=== PATIENT | female | born 1995 | race Caucasian/White ===

== ENCOUNTER 2017-04-06 19:49 | Emergency (ER) | payer OTHER ==
[~2017-04-06] VITALS: Ht 175.3 cm; Wt 60.8 kg
[~2017-04-06 19:49] MED LIST: ALBU6.7H INH; LORA10TA7 PO; PROM6.257 PO; ZITH250T PO
[2017-04-06 19:55] VITALS: BP 133/63; PULSE 98; RESP 16; TEMP 98.4; O2SAT 98
[2017-04-06] MEDS ORDERED: POLY10O RIGHT EYE (20:03)
[2017-04-06] MEDS ORDERED: AMOX500T2 PO (20:03)
[2017-04-06] MEDS ORDERED: CLIN300C5 PO (20:58)
[2017-04-06] MEDS ORDERED: CIPR3.5O RIGHT EYE (20:58)
--- NOTE | 2017-04-06 20:58 | PD ---
HPI Chief Complaint: Eye Problems/Injury Time Seen by Provider: 20:42 Travel History International Travel<30 days: No Contact w/Intl Traveler<30days: No Traveled to known affect area: No History of Present Illness HPI 21-year-old female here with bilateral eye redness and right eye lid swelling 3 days. Patient was seen 3 days ago and put on Bleph-10 eyedrops for conjunctivitis. Since that time her symptoms worsen. She denies eye pain or visual changes. She does use contact lenses. No trauma to the eye. Symptoms severity moderate. No alleviating factors. PFSH Past Medical History Medical History: Denies Significant Hx Diminished Hearing: No Musculoskeletal: Yes (FX LEFT ARM) Immunizations Current: Yes (utd) Tetanus Vaccination: < 5 Years Influenza Vaccination: No ?: Not LMP: 04-01-17 Past Surgical History Ear Surgery: Yes (TUBES REMOVED) Other Surgery: Yes (ADENOIDS REMOVED, ) Social History Alcohol Use: Yes (weekends) Tobacco Use: No Substance Use: No Allergies-Medications (Allergen,Severity, Reaction): Coded Allergies: azithromycin (Verified Allergy, Severe, VOMMITS BLOOD, 04/06/17) Reported Meds & Prescriptions Reported Meds & Active Scripts Active Reported Amoxicillin-Clavulanate 500-125 mg Tab 500 Mg PO BID Polytrim Opth Drops (Polymyxin/Trimethoprim Sulfate) 10,000-0.1 Unit/Ml-% Soln 1 Drop RIGHT EYE Q6HR Review of Systems Except as stated in HPI: all other systems reviewed are Neg General / Constitutional: No: Fever Eyes: No: Visual changes Physical Exam Narrative GENERAL: Alert female in no distress. SKIN: Warm and dry. HEAD: Normocephalic. EYES: Bilateral eyes injected right greater than the left. Moderate swelling of the right upper and lower lid. Crusting noted at eyelashes. PERRLA. EOMs intact. No pain with extraocular motions. NECK: Supple, trachea midline. No lymphadenopathy. Data Data Last Documented VS Vital Signs Date Time Temp Pulse Resp B/P (MAP) Pulse Ox O2 Delivery O2 Flow Rate FiO2 04/06/17 19:55 98.4 98 16 133/63 (86) 98 MDM Medical Decision Making Medical Screen Exam Complete: Yes Emergency Medical Condition: Yes Differential Diagnosis Bacterial Conjunctivitis, orbital cellulitis, periorbital cellulitis Narrative Course 21-year-old female here with conjunctivitis right worse than left 3 days. Symptoms not improving with Bleph-10. On exam she has bilateral eye injection with crusting at the base of the lashes on the right side. Moderate swelling of the right upper and lower lid with mild erythema. Ocular eye motions are intact and painless. No proptosis. I do not suspect orbital cellulitis. Patient will be instructed to discontinue the Bleph-10 and start Cipro ophthalmic ointment. She is to follow-up with her primary care physician or anchor operator in one to 2 days for recheck. Return prior symptoms worsen. Diagnosis Primary Impression: Conjunctivitis Qualified Codes: H10.9 - Unspecified conjunctivitis Referrals: Primary Care Physician Scripts Clindamycin (Clindamycin) 300 Mg Cap 300 MG PO TID for Infection for 7 Days, CAP 0 Refills Prov: Ilsa Faulkner 04/06/17 Ciprofloxacin Opth Oint (Ciloxan Opth Oint) 0.3% Oint 0.5 INCH RIGHT EYE TID for Infection for 7 Days, #1 TUBE 0 Refills Prov: Ilsa Faulkner 04/06/17 Disposition: 01 DISCHARGE HOME Condition: Stable Ilsa Faulkner Apr 06, 2017 20:58
== END 2017-04-06 21:05 | disposition home or self-care (01) ==
LOC: PHEFT 19:49
DX: H10.9 Unspecified conjunctivitis (principal)
CPT/HCPCS: 99284